=== PATIENT | male | born 1995 | race Caucasian/White ===

== ENCOUNTER 2016-12-06 12:03 | Emergency (ER) | payer OTHER ==
[~2016-12-06] VITALS: Ht 195.6 cm; Wt 79.4 kg
[2016-12-06 12:03] VITALS: BP 121/70
[2016-12-06] MEDS ORDERED: LIDOCAINE 2% 20 ML MDV TP ONE (12:30)
== END 2016-12-06 12:57 | disposition home or self-care (01) ==
LOC: ER 12:04
DX: S61.210A Laceration without foreign body of right index finger without damage to nail, initial encounter (principal); F17.200 Nicotine dependence, unspecified, uncomplicated; W25.XXXA Contact with sharp glass, initial encounter; Y93.89 Activity, other specified; Y92.090 Kitchen in other non-institutional residence as the place of occurrence of the external cause; Y99.8 Other external cause status
CPT/HCPCS: 12001; 99283; A4606; A6402; A6403; Z7610